=== PATIENT | female | born 1975 | race Caucasian/White ===

== ENCOUNTER → 2019-01-05 | Outpatient (CLI) | payer MEDICAID ==
--- NOTE | 2019-01-06 10:56 | CRLMY ---
INDICATION: Bilateral Screening Mammogram, Asymptomatic Female age 43 been obtained using full-field digital technique. These mammographic images were interpreted with the benefit of computer-aided detection. COMPARISON FILM: 12/30/17, 12/13/14. FINDINGS: There are scattered fibroglandular densities. There are no masses or calcifications that are suspicious for malignancy. IMPRESSION: There is no radiographic evidence for malignancy. ASSESSMENT: BI-RADS Category 1: Negative RECOMMENDATION: Routine screening mammogram in 1 year. A lay language report of this examination will be provided to the patient. Breast Tomosynthesis was used in this interpretation. [email or web address] Dictated by: Luis [email or web address].MD @ 01/06/2019 10:55:55 (Electronically Signed)
== END ==
LOC: JP.MAM 12:06
PROVIDERS: ATTEND Advanced Practice Midwife
DX: Z12.31 Encounter for screening mammogram for malignant neoplasm of breast (principal)
CPT/HCPCS: 77063; 77067

== ENCOUNTER 2020-02-20 08:22 | Observation (INO) | payer MEDICAID ==
[2020-02-20] MEDS ORDERED: Sodium Chloride 0.9% 1,000 ML IV ONE (08:55)
[2020-02-20] MEDS ORDERED: Ondansetron 4 MG/2 ML SDV IVPUSH ONE (08:56)
[2020-02-20] MEDS ORDERED: HYDROmorphone 0.5 MG/0.5 ML Syringe IVPUSH ONE (08:56)
--- NOTE | 2020-02-20 09:02 | EDM.PDOC ---
ED HPI GENERAL MEDICAL PROBLEM - General Chief Complaint: Genitourinary Problem Stated Complaint: UTI, SOB, FEVER, CHILLS Time Seen by Provider: 02/20/20 08:45 Source of Information: Reports: Patient History Limitations: Reports: No Limitations - History of Present Illness INITIAL COMMENTS - FREE TEXT/NARRATIVE: Patient utilized [facility] several days ago and was diagnosed as having urinary tract infection. Macrobid was prescribed. 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 Overnight she was unable to sleep and developed total body aches shaking chills and sweats. Complaining of abdominal pain and low back pain. Onset: Gradual Duration: Getting Worse Location: Reports: Abdomen Quality: Reports: Sharp Severity: Severe Associated Symptoms: Reports: Fever/Chills, Nausea/Vomiting Treatments ASSOCIATE FINANCIAL REPRESENTATIVE: Reports: Acetaminophen - Related Data Allergies Allergy/AdvReac Type Severity Reaction Status Date / Time No Known Allergies Allergy Verified 12/30/13 10:09 Home Meds: Home Meds FLUoxetine [PROzac] 20 mg PO DAILY 12/30/13 [History] Acetaminophen [Tylenol] 650 mg PO Q6H PRN 01/31/20 [History] Cyclobenzaprine HCl 5 mg PO TID PRN 01/31/20 [History] Ibuprofen 400 mg PO Q6H PRN 01/31/20 [History] Multivitamin with Minerals [Multiple Vitamin] 1 tab PO DAILY 01/31/20 [History] Naproxen Sodium [Aleve] 220 mg PO DAILY 01/31/20 [History] Triamcinolone Acetonide [Kenalog 0.1% Crm] 1 applic TOP TID PRN 01/31/20 [ History] Nitrofurantoin Monohyd/M-Cryst [Macrobid 100 mg Capsule] 100 mg PO BID 02/20/20 [History] Salicylic Acid [Duofilm] 1 appful TOP ASDIRECTED 02/20/20 [History] Past Medical History - Past Health History Medical/Surgical History: Denies Medical/Surgical History Genitourinary History: Reports: UTI, Recurrent Musculoskeletal History: Reports: Other (See Below) Other Musculoskeletal History: left shoulder pain - Past Surgical History Female Surgical History: Reports: Tubal Ligation Musculoskeletal Surgical History: Reports: None Social & Family History - Tobacco Use Smoking Status *Q: Unknown Ever Smoked - Caffeine Use Caffeine Use: Reports: Coffee - Recreational Drug Use Recreational Drug Use: No ED ROS GENERAL - Review of Systems Review Of Systems: See Below Constitutional: Reports: Fever, Chills, Malaise HEENT: Reports: No Symptoms Respiratory: Denies: Shortness of Breath, Wheezing, Cough Cardiovascular: Denies: Chest Pain Endocrine: Reports: Fatigue GI/Abdominal: Reports: Abdominal Pain, Vomiting : Reports: Dysuria, Flank Pain Musculoskeletal: Reports: Other (Total Body aches) Psychiatric: Reports: Anxiety, Mood Lability, Other (Patient is insistent that she not go back on medication prescribed for her via telemedicine for her UTI ( Macrobid)) ED EXAM, RENAL/ - Physical Exam Exam: See Below Exam Limited By: No Limitations General Appearance: Alert, Moderate Distress Ears: Normal External Exam Nose: Other (Mucous membranes) Throat/Mouth: Normal Teeth, Normal Gums Head: Normocephalic Neck: Normal Inspection, Supple Respiratory/Chest: No Respiratory Distress, Lungs Clear, Normal Breath Sounds, No Accessory Muscle Use Cardiovascular: No Edema, No Murmur, Tachycardia GI/Abdominal: No Organomegaly, Other (Diffuse tenderness but no guarding or rebound) Back Exam: Normal Inspection, CVA Tenderness (R) Extremities: Normal Inspection, Normal Range of Motion Neurological: Alert, Normal Cognition, No Motor/Sensory Deficits Psychiatric: Anxious, Depressed Mood Skin Exam: Warm, Dry Course - Vital Signs Text/Narrative:: Evaluation is done to rule out sepsis. I did initially order 1 L IV fluid, Dilaudid, and Zofran to help her symptomatically. Patient has elevated white blood cell count, elevated lactic acid, recurrent vomiting, Fevers, chills and sweats. Urinalysis still shows presence of white blood cells after the patient took 2 doses of Macrobid. We will be treating her as a septic patient with IV fluid bolus, blood cultures, and a dose of Rocephin here. Last Recorded V/S: Last Vital Signs Temp 37.6 C 02/20/20 08:39 Pulse 101 H 02/20/20 08:39 Resp 20 02/20/20 08:39 BP 131/78 02/20/20 08:39 Pulse Ox 96 02/20/20 08:39 - Orders/Labs/Meds Orders: Active Orders 24 hr Category Date Time Status Abdomen Pelvis w Cont [CT] Stat Exams 02/20/20 09:41 Ordered CULTURE BLOOD [BC] Urgent Lab 02/20/20 09:35 Ordered CULTURE BLOOD [BC] Urgent Lab 02/20/20 09:35 Ordered Urine [HCG QUALITATIVE,URINE] [URCHEM] Stat Lab 02/20/20 09:45 Ordered Iopamidol [Isovue-300 (61%)] Med 02/20/20 10:00 Active 100 ml IV . DIRECTED NS + KCl 20mEq/L [Normal Saline with 20 mEq KCl] 1,000 Med 02/20/20 10:00 Active ml IV ASDIRECTED Sodium Chloride 0.9% [Normal Saline] 100 ml Med 02/20/20 10:00 Active IV ASDIRECTED cefTRIAXone [Rocephin] 1 gm Med 02/20/20 09:45 Active Sodium Chloride 0.9% [Normal Saline] 50 ml IV ONETIME Blood Culture x2 Reflex Set [OM.PC] Urgent Oth 02/20/20 09:34 Ordered Medication Orders Ceftriaxone Sodium 1 gm/ (Sodium Chloride) 50 mls @ 100 mls/hr IV ONETIME ONE Stop: 02/20/20 10:14 Last Admin: 02/20/20 09:55 Dose: 100 mls/hr Sodium Chloride (Normal Saline) 100 mls @ 3 mls/sec IV ASDIRECTED GERI Potassium Chloride/Sodium Chloride (Normal Saline With 20 Meq Kcl) 1,000 mls @ 150 mls/hr IV ASDIRECTED GERI Iopamidol (Isovue-300 (61%)) 100 ml IV . DIRECTED [facility] Labs: Laboratory Tests 02/20/20 02/20/20 02/20/20 Range/Units 08:54 09:05 09:05 WBC 13.0 H (4.5-11.0) K/uL RBC 4.02 (3.30-5.50) M/uL Hgb 12.2 (12.0-15.0) g/dL Hct 36.7 (36.0-48.0) % MCV 91 (80-98) fL MCH 30 (27-31) pg MCHC 33 (32-36) % Plt Count 210 (150-400) K/uL Sodium 134 L (140-148) mmol/L Potassium 3.5 L (3.6-5.2) mmol/L Chloride 98 L (100-108) mmol/L Carbon Dioxide 23 (21-32) mmol/L Anion Gap 16.5 H (5.0-14.0) mmol/L BUN 7 (7-18) mg/dL Creatinine 0.9 (0.6-1.0) mg/dL Est Cr Clr Drug Dosing 66.67 mL/min Estimated GFR (MDRD) > 60 (>60) Glucose 106 (74-106) mg/dL Lactic Acid (0.4-2.0) mmol/L Calcium 8.6 (8.5-10.1) mg/dL Total Bilirubin 1.9 H (0.2-1.0) mg/dL AST 21 (15-37) U/L ALT 28 (12-78) U/L Alkaline Phosphatase 68 (46-116) U/L Total Protein 6.7 (6.4-8.2) g/dL Albumin 3.7 (3.4-5.0) g/dL Globulin 3.0 (2.3-3.5) g/dL Albumin/Globulin Ratio 1.2 (1.2-2.2) Lipase (73-393) U/L Procalcitonin ng/mL Urine Color Yellow (YELLOW) Urine Appearance Slightly cloudy A (CLEAR) Urine pH 7.0 (5.0-8.0) Ur Specific [place] 1.025 (1.008-1.030) Urine Protein Negative (NEGATIVE) mg/dL Urine Glucose (UA) Negative (NEGATIVE) mg/dL Urine Ketones Negative (NEGATIVE) mg/dL Urine Occult Blood Negative (NEGATIVE) Urine Nitrite Negative (NEGATIVE) Urine Bilirubin Negative (NEGATIVE) Urine Urobilinogen 0.2 (0.2-1.0) EU/dL Ur Leukocyte Esterase Trace H (NEGATIVE) Urine RBC 0-5 (0-5) Urine WBC 5-10 H (0-5) Ur Epithelial Cells Not seen Amorphous Sediment Not seen Urine Bacteria Few Urine Mucus Not seen 02/20/20 02/20/20 02/20/20 Range/Units 09:05 09:05 09:05 WBC (4.5-11.0) K/uL RBC (3.30-5.50) M/uL Hgb (12.0-15.0) g/dL Hct (36.0-48.0) % MCV (80-98) fL MCH (27-31) pg MCHC (32-36) % Plt Count (150-400) K/uL Sodium (140-148) mmol/L Potassium (3.6-5.2) mmol/L Chloride (100-108) mmol/L Carbon Dioxide (21-32) mmol/L Anion Gap (5.0-14.0) mmol/L BUN (7-18) mg/dL Creatinine (0.6-1.0) mg/dL Est Cr Clr Drug Dosing mL/min Estimated GFR (MDRD) (>60) Glucose (74-106) mg/dL Lactic Acid 3.3 H (0.4-2.0) mmol/L Calcium (8.5-10.1) mg/dL Total Bilirubin (0.2-1.0) mg/dL AST (15-37) U/L ALT (12-78) U/L Alkaline Phosphatase (46-116) U/L Total Protein (6.4-8.2) g/dL Albumin (3.4-5.0) g/dL Globulin (2.3-3.5) g/dL Albumin/Globulin Ratio (1.2-2.2) Lipase 87 (73-393) U/L Procalcitonin < 0.05 ng/mL Urine Color (YELLOW) Urine Appearance (CLEAR) Urine pH (5.0-8.0) Ur Specific [place] (1.008-1.030) Urine Protein (NEGATIVE) mg/dL Urine Glucose (UA) (NEGATIVE) mg/dL Urine Ketones (NEGATIVE) mg/dL Urine Occult Blood (NEGATIVE) Urine Nitrite (NEGATIVE) Urine Bilirubin (NEGATIVE) Urine Urobilinogen (0.2-1.0) EU/dL Ur Leukocyte Esterase (NEGATIVE) Urine RBC (0-5) Urine WBC (0-5) Ur Epithelial Cells Amorphous Sediment Urine Bacteria Urine Mucus Meds: Medications Generic Name Dose Route Start Last Admin Trade Name Freq PRN Reason Stop Dose Admin Ceftriaxone Sodium 1 gm/ 50 mls @ 100 mls/hr 02/20/20 09:45 02/20/20 09:55 Sodium Chloride IV 02/20/20 10:14 100 mls/hr ONETIME ONE Administration Sodium Chloride 100 mls @ 3 mls/sec 02/20/20 10:00 Normal Saline IV ASDIRECTED GERI Potassium Chloride/Sodium Chloride 1,000 mls @ 150 mls/hr 02/20/20 10:00 Normal Saline With 20 Meq Kcl IV ASDIRECTED GERI Iopamidol 100 ml 02/20/20 10:00 Isovue-300 (61%) IV . DIRECTED GERI Discontinued Medications Generic Name Dose Route Start Last Admin Trade Name Freq PRN Reason Stop Dose Admin Hydromorphone HCl 0.5 mg 02/20/20 08:56 02/20/20 09:06 Dilaudid IVPUSH 02/20/20 08:57 0.5 mg ONETIME ONE Administration Sodium Chloride 1,000 mls @ 1,000 mls/hr 02/20/20 08:55 02/20/20 09:05 Normal Saline IV 02/20/20 09:54 1,000 mls/hr .BOLUS ONE Administration Ondansetron HCl 4 mg 02/20/20 08:56 02/20/20 09:07 Zofran IVPUSH 02/20/20 08:57 4 mg ONETIME ONE Administration Sodium Chloride 10 ml 02/20/20 09:53 Saline Flush FLUSH 02/20/20 09:54 ONETIME ONE Departure - Discharge Information Referrals: Dayana Richard CNM [Primary Care Provider] - Forms: ED Department Discharge Sepsis Event Note - Evaluation Sepsis Screening Result: Possible Sepsis Risk - Focused Exam Vital Signs: Vital Signs Temp Pulse Resp BP Pulse Ox 02/20/20 08:39 37.6 C 101 H 20 131/78 96 02/20/20 08:34 37.6 C 101 H 20 131/78 96 Date Exam was Performed: 02/20/20 Time Exam was Performed: 10:00 - My Orders Last 24 Hours: My Active Orders 02/20/20 09:34 Blood Culture x2 Reflex Set [OM.PC] Urgent 02/20/20 09:35 CULTURE BLOOD [BC] Urgent CULTURE BLOOD [BC] Urgent 02/20/20 09:41 Abdomen Pelvis w Cont [CT] Stat 02/20/20 09:45 Urine [HCG QUALITATIVE,URINE] [URCHEM] Stat cefTRIAXone [Rocephin] 1 gm Sodium Chloride 0.9% [Normal Saline] 50 ml IV ONETIME 02/20/20 10:00 Iopamidol [Isovue-300 (61%)] 100 ml IV . DIRECTED NS + KCl 20mEq/L [Normal Saline with 20 mEq KCl] 1,000 ml IV ASDIRECTED Sodium Chloride 0.9% [Normal Saline] 100 ml IV ASDIRECTED - Assessment/Plan Last 24 Hours: My Active Orders 02/20/20 09:34 Blood Culture x2 Reflex Set [OM.PC] Urgent 02/20/20 09:35 CULTURE BLOOD [BC] Urgent CULTURE BLOOD [BC] Urgent 02/20/20 09:41 Abdomen Pelvis w Cont [CT] Stat 02/20/20 09:45 Urine [HCG QUALITATIVE,URINE] [URCHEM] Stat cefTRIAXone [Rocephin] 1 gm Sodium Chloride 0.9% [Normal Saline] 50 ml IV ONETIME 02/20/20 10:00 Iopamidol [Isovue-300 (61%)] 100 ml IV . DIRECTED NS + KCl 20mEq/L [Normal Saline with 20 mEq KCl] 1,000 ml IV ASDIRECTED Sodium Chloride 0.9% [Normal Saline] 100 ml IV ASDIRECTED
[2020-02-20] MEDS ORDERED: cefTRIAXone 1 GM in Sodium Chloride 0.9% 50 ML IV ONE ×2 (09:37→09:45)
[2020-02-20] MEDS ORDERED: Sodium Chloride 0.9% 10 ML Syringe FLUSH ONE (09:53)
[2020-02-20] MEDS ORDERED: NS + KCl 20mEq/L 1,000 ML IV SCH (10:00)
[2020-02-20] MEDS ORDERED: Iopamidol 612 MG/ML 100 ML Bottle IV SCH (10:00)
[2020-02-20] MEDS ORDERED: Sodium Chloride 0.9% 100 ML IV SCH (10:00)
--- NOTE | 2020-02-20 10:45 | CRLCT ---
INDICATION: Abdominal pain and fever COMPARISON: None TECHNIQUE: CT examination of the abdomen and pelvis was performed following the uneventful intravenous administration of 100 cc of Isovue-300. Thin section axial images were obtained from the lung bases through the pubic symphysis. Oral contrast was not administered. Please note that all CT scans at this facility use dose modulation, iterative reconstruction, and/or weight-based dosing when appropriate to reduce radiation dose to as low as reasonably achievable. FINDINGS: LUNG BASES: The lung bases as visualized appear normal.The heart size is normal at the lung bases. LIVER/BILIARY SYSTEM:The liver is normal in size and configuration. There is no focal mass and there is no intra- or extra hepatic biliary ductal dilatation.The gall bladder appears normal. ADRENALS: Normal KIDNEYS, URETERS and BLADDER:The kidneys appear normal. No visible mass, calculus or hydronephrosis. The ureters and bladder as visualized appear normal. SPLEEN:Normal appearance. PANCREAS: Appears normal. RETROPERITONEUM and MESENTERY: There is no mass, adenopathy or aortic aneurysm. GASTROINTESTINAL SYSTEM: There is no evidence of diverticulitis, colitis, mechanical obstruction, or appendicitis. The small bowel as visualized appears normal.Fecal retention. PELVIS: No mass, adenopathy or free fluid. 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 OTHER: No free fluid or free air. IMPRESSION: No physical etiology for pain and fever. There is fecal retention without mechanical obstruction. No evidence of pyelonephritis, abscess, appendicitis, diverticulitis, colitis or cholecystitis Please note that all CT scans at this facility use dose modulation, iterative reconstruction, and/or weight-based dosing when appropriate to reduce radiation dose to as low as reasonably achievable. Dictated by Elvis Mancuso MD @ Feb 20 2020 10:39AM Signed by Dr. Elvis Mancuso @ Feb 20 2020 10:45AM
[2020-02-20] MEDS ORDERED: HYDROmorphone 1 MG/ML Syringe IVPUSH ONE (11:03)
--- NOTE | 2020-02-20 11:56 | PCM.HP.2 ---
H&P History of Present Illness - General Date of Service: 02/20/20 Admit Problem/Dx: Admission Diagnosis/Problem Admission Diagnosis/Problem Gastroenteritis Source of Information: Patient, Provider History Limitations: Reports: No Limitations - History of Present Illness Initial Comments - Free Text/Narative: CC: My head hurts, I hurt all over HPI: Denise presents to the emergency room today with headache, nausea, vomiting and myalgias. She also reports shaking chills. She had diarrhea 3 nights ago but felt a little better 2 days ago. Yesterday she had some nausea and mild myalgias. This morning she developed vomiting and dry heaves. She complains of a moderate generalized headache as well as diffuse myalgias. She has not taken anything to help with the headache or myalgias at home. Symptoms seem to be getting worse over the past 24 hours. No obvious trigger to make things worse. She did feel little short of breath when her fever was present this morning but in general has not felt short of breath and she has not had a cough or sore throat. No diarrhea in the past 24 hours. She had dysuria 2 nights ago and was diagnosed via telehealth with a urinary tract infection. She took 2 doses of the oral antibiotic yesterday and has no more dysuria or urinary frequency. She has not traveled. She has been on unemployment for the last month because of the [employer] shutdown. She did attend a social gathering/ bonfire 3 nights ago but nobody was sick that she is aware of. Work-up in the emergency room revealed mild leukocytosis and a mild elevation of her lactic acid. She was mildly tachycardic. No strong evidence to support bacterial infection and her procalcitonin was undetectable. Viral infection such as gastroenteritis is suspected. Given the severity of symptoms she will be admitted for hydration, symptom management and further observation. Head Pain Score (Numeric/FACES): 10 Generalized Pain Score (Numeric/FACES): 8 - Related Data Allergies/Adverse Reactions: Allergies Allergy/AdvReac Type Severity Reaction Status Date / Time No Known Allergies Allergy Verified 12/30/13 10:09 Home Medications: Home Meds FLUoxetine [PROzac] 20 mg PO DAILY 12/30/13 [History] Acetaminophen [Tylenol] 650 mg PO Q6H PRN 01/31/20 [History] Cyclobenzaprine HCl 5 mg PO TID PRN 01/31/20 [History] Ibuprofen 400 mg PO Q6H PRN 01/31/20 [History] Multivitamin with Minerals [Multiple Vitamin] 1 tab PO DAILY 01/31/20 [History] Naproxen Sodium [Aleve] 220 mg PO DAILY 01/31/20 [History] Triamcinolone Acetonide [Kenalog 0.1% Crm] 1 applic TOP TID PRN 01/31/20 [ History] Nitrofurantoin Monohyd/M-Cryst [Macrobid 100 mg Capsule] 100 mg PO BID 02/20/20 [History] Salicylic Acid [Duofilm] 1 appful TOP ASDIRECTED 02/20/20 [History] Past Medical History - Past Health History Medical/Surgical History: Denies Medical/Surgical History Genitourinary History: Reports: UTI, Recurrent Musculoskeletal History: Reports: Other (See Below) Other Musculoskeletal History: left shoulder pain - Past Surgical History Female Surgical History: Reports: Tubal Ligation Musculoskeletal Surgical History: Reports: None Social & Family History - Family History GI: Denies: Pancreatitis - Tobacco Use Smoking Status *Q: Unknown Ever Smoked - Caffeine Use Caffeine Use: Reports: Coffee - Recreational Drug Use Recreational Drug Use: No H&P Review of Systems - Review of Systems: Review Of Systems: See Below Free Text/Narrative: A complete 12 point review of systems was obtained. Pertinent positives and negatives are noted in the history of present illness. All other systems were reviewed and were negative except as noted. Exam - Exam Exam: See Below - Vital Signs Vital Signs: Last Vital Signs Temp 38.1 C 02/20/20 10:24 Pulse 106 H 02/20/20 10:24 Resp 16 02/20/20 10:24 BP 127/75 02/20/20 10:24 Pulse Ox 99 02/20/20 10:24 Weight: 58.967 kg - Exam Quality Assessment: No: Supplemental Oxygen General: Alert, Oriented, Cooperative. No: Mild Distress HEENT: Conjunctiva Clear. No: Mucosa Moist & [place] (dry), Scleral Icterus Neck: Supple. No: Lymphadenopathy Lungs: Clear to Auscultation, Normal Respiratory Effort Cardiovascular: Regular Rhythm, Systolic Murmur, Other (hyperdynamic ) GI/Abdominal Exam: Normal Bowel Sounds, Soft, No Distention, Tender (mild epigastric ) Extremities: No Pedal Edema. No: Increased Warmth Peripheral Pulses: 2+: Dorsalis Pedis (L), Dorsalis Pedis (R) Skin: Warm, Dry Neuro Extensive - Mental Status: Alert, Oriented x3, Nl Response to Commands Neuro Extensive - Motor, Sensory, Reflexes: No: Dysarthria, Abnormal Motor, Tremor Psychiatric: Alert, Normal Affect - Patient Data Lab Results Last 24 hrs: Laboratory Results - last 24 hr 02/20/20 02/20/20 02/20/20 Range/Units 08:54 09:05 09:05 WBC 13.0 H (4.5-11.0) K/uL RBC 4.02 (3.30-5.50) M/uL Hgb 12.2 (12.0-15.0) g/dL Hct 36.7 (36.0-48.0) % MCV 91 (80-98) fL MCH 30 (27-31) pg MCHC 33 (32-36) % Plt Count 210 (150-400) K/uL Sodium 134 L (140-148) mmol/L Potassium 3.5 L (3.6-5.2) mmol/L Chloride 98 L (100-108) mmol/L Carbon Dioxide 23 (21-32) mmol/L Anion Gap 16.5 H (5.0-14.0) mmol/L BUN 7 (7-18) mg/dL Creatinine 0.9 (0.6-1.0) mg/dL Est Cr Clr Drug Dosing 66.67 mL/min Estimated GFR (MDRD) > 60 (>60) Glucose 106 (74-106) mg/dL Lactic Acid (0.4-2.0) mmol/L Calcium 8.6 (8.5-10.1) mg/dL Total Bilirubin 1.9 H (0.2-1.0) mg/dL AST 21 (15-37) U/L ALT 28 (12-78) U/L Alkaline Phosphatase 68 (46-116) U/L Total Protein 6.7 (6.4-8.2) g/dL Albumin 3.7 (3.4-5.0) g/dL Globulin 3.0 (2.3-3.5) g/dL Albumin/Globulin Ratio 1.2 (1.2-2.2) Lipase (73-393) U/L Procalcitonin ng/mL Urine Color Yellow (YELLOW) Urine Appearance Slightly cloudy A (CLEAR) Urine pH 7.0 (5.0-8.0) Ur Specific [place] 1.025 (1.008-1.030) Urine Protein Negative (NEGATIVE) mg/dL Urine Glucose (UA) Negative (NEGATIVE) mg/dL Urine Ketones Negative (NEGATIVE) mg/dL Urine Occult Blood Negative (NEGATIVE) Urine Nitrite Negative (NEGATIVE) Urine Bilirubin Negative (NEGATIVE) Urine Urobilinogen 0.2 (0.2-1.0) EU/dL Ur Leukocyte Esterase Trace H (NEGATIVE) Urine RBC 0-5 (0-5) Urine WBC 5-10 H (0-5) Ur Epithelial Cells Not seen Amorphous Sediment Not seen Urine Bacteria Few Urine Mucus Not seen Urine HCG, Qual 02/20/20 02/20/20 02/20/20 Range/Units 09:05 09:05 09:05 WBC (4.5-11.0) K/uL RBC (3.30-5.50) M/uL Hgb (12.0-15.0) g/dL Hct (36.0-48.0) % MCV (80-98) fL MCH (27-31) pg MCHC (32-36) % Plt Count (150-400) K/uL Sodium (140-148) mmol/L Potassium (3.6-5.2) mmol/L Chloride (100-108) mmol/L Carbon Dioxide (21-32) mmol/L Anion Gap (5.0-14.0) mmol/L BUN (7-18) mg/dL Creatinine (0.6-1.0) mg/dL Est Cr Clr Drug Dosing mL/min Estimated GFR (MDRD) (>60) Glucose (74-106) mg/dL Lactic Acid 3.3 H (0.4-2.0) mmol/L Calcium (8.5-10.1) mg/dL Total Bilirubin (0.2-1.0) mg/dL AST (15-37) U/L ALT (12-78) U/L Alkaline Phosphatase (46-116) U/L Total Protein (6.4-8.2) g/dL Albumin (3.4-5.0) g/dL Globulin (2.3-3.5) g/dL Albumin/Globulin Ratio (1.2-2.2) Lipase 87 (73-393) U/L Procalcitonin < 0.05 ng/mL Urine Color (YELLOW) Urine Appearance (CLEAR) Urine pH (5.0-8.0) Ur Specific [place] (1.008-1.030) Urine Protein (NEGATIVE) mg/dL Urine Glucose (UA) (NEGATIVE) mg/dL Urine Ketones (NEGATIVE) mg/dL Urine Occult Blood (NEGATIVE) Urine Nitrite (NEGATIVE) Urine Bilirubin (NEGATIVE) Urine Urobilinogen (0.2-1.0) EU/dL Ur Leukocyte Esterase (NEGATIVE) Urine RBC (0-5) Urine WBC (0-5) Ur Epithelial Cells Amorphous Sediment Urine Bacteria Urine Mucus Urine HCG, Qual 02/20/20 Range/Units 09:45 WBC (4.5-11.0) K/uL RBC (3.30-5.50) M/uL Hgb (12.0-15.0) g/dL Hct (36.0-48.0) % MCV (80-98) fL MCH (27-31) pg MCHC (32-36) % Plt Count (150-400) K/uL Sodium (140-148) mmol/L Potassium (3.6-5.2) mmol/L Chloride (100-108) mmol/L Carbon Dioxide (21-32) mmol/L Anion Gap (5.0-14.0) mmol/L BUN (7-18) mg/dL Creatinine (0.6-1.0) mg/dL Est Cr Clr Drug Dosing mL/min Estimated GFR (MDRD) (>60) Glucose (74-106) mg/dL Lactic Acid (0.4-2.0) mmol/L Calcium (8.5-10.1) mg/dL Total Bilirubin (0.2-1.0) mg/dL AST (15-37) U/L ALT (12-78) U/L Alkaline Phosphatase (46-116) U/L Total Protein (6.4-8.2) g/dL Albumin (3.4-5.0) g/dL Globulin (2.3-3.5) g/dL Albumin/Globulin Ratio (1.2-2.2) Lipase (73-393) U/L Procalcitonin ng/mL Urine Color (YELLOW) Urine Appearance (CLEAR) Urine pH (5.0-8.0) Ur Specific [place] (1.008-1.030) Urine Protein (NEGATIVE) mg/dL Urine Glucose (UA) (NEGATIVE) mg/dL Urine Ketones (NEGATIVE) mg/dL Urine Occult Blood (NEGATIVE) Urine Nitrite (NEGATIVE) Urine Bilirubin (NEGATIVE) Urine Urobilinogen (0.2-1.0) EU/dL Ur Leukocyte Esterase (NEGATIVE) Urine RBC (0-5) Urine WBC (0-5) Ur Epithelial Cells Amorphous Sediment Urine Bacteria Urine Mucus Urine HCG, Qual Negative Result Diagrams: 02/20/20 09:05 02/20/20 09:05 Imaging Impressions Last 24 hrs: CT abd/pelvis - images personally reviewed - no evidence for bowel obstruction, cholecystitis, appendicitis or acute pathology. Sepsis Event Note - Evaluation Sepsis Screening Result: Possible Sepsis Risk - Focused Exam Vital Signs: Vital Signs Temp Pulse Resp BP Pulse Ox 02/20/20 10:24 38.1 C 106 H 16 127/75 99 02/20/20 08:39 37.6 C 101 H 20 131/78 96 02/20/20 08:34 37.6 C 101 H 20 131/78 96 Date Exam was Performed: 02/20/20 Time Exam was Performed: 15:42 *Q Meaningful Use (ADM) - VTE Risk Assess *Q Each Risk Factor Represents 1 Point: Age 41 - 59 years Total Score 1 Point Risk Factors: 1 Each Risk Factor Represents 2 Points: None Total Score 2 Point Risk Factors: 0 Each Risk Factor Represents 3 Points: None Total Score 3 Point Risk Factors: 0 Each Risk Factor Represents 5 Points: None Total Score 5 Point Risk Factors: 0 Venous Thromboembolism Risk Factor Score *Q: 1 - Problem List (1) Gastroenteritis SNOMED Code(s): 69040565 ICD Code: K52.9 - NONINFECTIVE GASTROENTERITIS AND COLITIS, UNSPECIFIED Status: Acute Current Visit: Yes (2) Hypokalemia SNOMED Code(s): 25343005 ICD Code: E87.6 - HYPOKALEMIA Status: Acute Current Visit: Yes Problem List Initiated/Reviewed/Updated: Yes Orders Last 24hrs: Active Orders 24 hr Category Date Time Status Patient Status Manage Transfer [TRANSFER] Routine ADT 02/20/20 11:48 Ordered CULTURE BLOOD [BC] Urgent Lab 02/20/20 09:35 Ordered CULTURE BLOOD [BC] Urgent Lab 02/20/20 09:35 Ordered CULTURE URINE [RM] Routine Lab 02/20/20 11:31 Received Iopamidol [Isovue-300 (61%)] Med 02/20/20 10:00 Active 100 ml IV . DIRECTED NS + KCl 20mEq/L [Normal Saline with 20 mEq KCl] 1,000 Med 02/20/20 10:00 Active ml IV ASDIRECTED Sodium Chloride 0.9% [Normal Saline] 100 ml Med 02/20/20 10:00 Active IV ASDIRECTED Blood Culture x2 Reflex Set [OM.PC] Urgent Oth 02/20/20 09:34 Ordered Resuscitation Status Routine Resus Stat 02/20/20 11:49 Ordered Medication Orders Sodium Chloride (Normal Saline) 100 mls @ 3 mls/sec IV ASDIRECTED [facility] Last Admin: 02/20/20 10:08 Dose: 3 mls/sec Potassium Chloride/Sodium Chloride (Normal Saline With 20 Meq Kcl) 1,000 mls @ 150 mls/hr IV ASDIRECTED [facility] Iopamidol (Isovue-300 (61%)) 100 ml IV . DIRECTED [facility] Last Admin: 02/20/20 10:11 Dose: 100 ml Assessment/Plan Comment:: ASSESSMENT AND PLAN - Viral gastroenteritis, suspected-mild diarrhea with nausea, vomiting, headache and myalgias. No obvious sick contacts but she has been out and about in the community some. Laboratory studies and symptoms do not fit with COVID19. I would anticipate with hydration and some symptomatic management she should be feeling better by tomorrow. CT scan of the abdomen and pelvis was unremarkable. Procalcitonin level was undetectable. -IV fluids -Symptomatic management of pain and nausea -Advance diet as tolerated Hypokalemia-mild and will be supplemented. Maintenance issues - - DVT prophylaxis -mechanical - GI prophylaxis -not indicated - Nutrition -clear liquids, advance as tolerated - Hamm catheter -not indicated CODE STATUS -full code Admission justification -patient will be referred observation status for hydration and symptom management. Disposition -I would anticipate discharge home tomorrow Primary care physician -Dayana Watson M.D. - Mortality Measure Prognosis:: Good
[2020-02-20] MEDS ORDERED: LORazepam 2 MG/ML SDV IVPUSH PRN (12:50)
[2020-02-20] MEDS ORDERED: Cyclobenzaprine 10 MG Tab PO PRN (12:50)
[2020-02-20] MEDS ORDERED: Ondansetron 4 MG/2 ML SDV IV PRN (12:50)
[2020-02-20] MEDS ORDERED: Magnesium Hydroxide 400 MG/5 ML Susp 30 ML Cup PO PRN (12:50)
[2020-02-20] MEDS ORDERED: HYDROmorphone 0.5 MG/0.5 ML Syringe IVPUSH PRN (12:50)
[2020-02-20] MEDS: Ondansetron 4 MG Tab.DIS PO PRN (13:45)
[2020-02-20] MEDS: Ketorolac 30 MG/ML SDV IVPUSH PRN ×2 (13:45→19:47)
[2020-02-20] MEDS: Potassium Chloride 20 MEQ, Lidocaine 1% 2 ML in Sodium Chloride 0.9% 100 ML IV SCH ×2 (13:47→15:52)
[2020-02-20] MEDS: Acetaminophen 325 MG Tab PO PRN ×2 (15:57→21:24)
[2020-02-20] MEDS: NS + KCl 20mEq/L 1,000 ML IV SCH (21:23)
[2020-02-20] MEDS: oxyCODONE 5 MG Tab PO PRN (21:24)
[2020-02-21] MEDS: oxyCODONE 5 MG Tab PO PRN ×2 (03:00→08:16)
[2020-02-21] MEDS: Acetaminophen 325 MG Tab PO PRN ×2 (03:01→08:15)
[2020-02-21] MEDS: NS + KCl 20mEq/L 1,000 ML IV SCH (05:30)
[2020-02-21] MEDS: Ondansetron 4 MG Tab.DIS PO PRN (08:33)
[2020-02-21] MEDS ORDERED: FLUoxetine 20 MG Cap PO SCH (09:00)
--- NOTE | 2020-02-21 10:34 | PCM.DCSUM1 ---
Discharge Summary - Hospital Course Brief History: Healthy 44-year-old female who presented with abdominal pain, nausea with vomiting, myalgias and headache. She is admitted for management of presumed gastroenteritis with dehydration and hypokalemia. Diagnosis: Stroke: No - Discharge Data Discharge Date: 02/21/20 Discharge Disposition: Home, Self-Care 01 Condition: Good - Referral to Home Health Primary Care Physician: Dayana Richard CNM - Discharge Diagnosis/Problem(s) (1) Gastroenteritis SNOMED Code(s): 75520121 ICD Code: K52.9 - NONINFECTIVE GASTROENTERITIS AND COLITIS, UNSPECIFIED Status: Acute (2) Hypokalemia SNOMED Code(s): 67604846 ICD Code: E87.6 - HYPOKALEMIA Status: Acute - Patient Summary/Data Hospital Course: Dinora presented to the emergency room with nausea with vomiting, headache, myalgias and concern for urinary tract infection. Work-up in the emergency room was fairly unremarkable other than mild leukocytosis and mildly elevated lactic acid level. CT scan of the abdomen and pelvis was unremarkable. Viral infection and most likely gastroenteritis was suspected. She was admitted to the hospital and started on IV fluids as well as symptomatic management. Her potassium was mildly low and was replaced. Overnight there were no acute issues. Her fever resolved overnight and has not recurred. Symptomatically she is feeling much better this morning. Her headache has nearly resolved. Muscle aches are better. Appetite is coming back. No nausea or vomiting. White blood cell count is now normal. She feels well enough to go home at this point. Her urine culture is not growing any bacteria and we will not continue antibiotic therapy. She does not have any urinary symptoms at this time. She will follow-up if her symptoms return. - Patient Instructions Diet: Regular Diet as Tolerated Activity: As Tolerated Showering/Bathing: May Shower Notify Provider of: Fever, Increased Pain, Nausea and/or Vomiting Other/Special Instructions: 1. You were in the hospital for management of suspected viral gastroenteritis. Your condition has been improving with IV fluids and symptomatic management. I encourage you to drink plenty of fluids to maintain hydration. You may use acetaminophen and/or ibuprofen for mild pain /headache. You should seek medical attention if you have a recurrence of high fever or if your symptoms worsen. 2. Continue your usual home medications as previously prescribed. - Discharge Plan *PRESCRIPTION DRUG MONITORING PROGRAM REVIEWED*: Not Applicable *COPY OF PRESCRIPTION DRUG MONITORING REPORT IN PATIENT LILLIAM: Not Applicable Home Medications: Home Meds FLUoxetine [PROzac] 20 mg PO DAILY 12/30/13 [History] Acetaminophen [Tylenol] 650 mg PO Q6H PRN 01/31/20 [History] Cyclobenzaprine HCl 5 mg PO TID PRN 01/31/20 [History] Ibuprofen 400 mg PO Q6H PRN 01/31/20 [History] Triamcinolone Acetonide [Kenalog 0.1% Crm] 1 applic TOP TID PRN 01/31/20 [ History] Nitrofurantoin Monohyd/M-Cryst [Macrobid 100 mg Capsule] 100 mg PO BID 02/20/20 [History] Salicylic Acid [Duofilm] 1 appful TOP ASDIRECTED 02/20/20 [History] Cranberry Conc/Ascorbic Acid [Cranberry Concentrate Softgel] 1 each PO DAILY [History] Oxygen Therapy Mode: Room Air Patient Handouts: Viral Gastroenteritis, Adult, [id number] Referrals: Dayana Richard CNM [Primary Care Provider] - (f/u as needed) - Discharge Summary/Plan Comment DC Time >30 min.: No - Patient Data Vitals - Most Recent: Last Vital Signs Temp 37.2 C 02/21/20 08:19 Pulse 100 02/21/20 08:19 Resp 18 02/21/20 08:19 BP 112/67 02/21/20 08:19 Pulse Ox 94 L 02/21/20 08:19 Weight - Most Recent: 58.967 kg I&O - Last 24 hours: Intake & Output 02/20/20 02/21/20 02/21/20 22:59 06:59 14:59 Intake Total 2154 1981 900 Output Total 2200 500 700 Balance -46 1481 200 Lab Results - Last 24 hrs: Laboratory Results - last 24 hr 02/20/20 02/21/20 02/21/20 Range/Units 14:14 05:30 05:30 WBC 10.0 (4.5-11.0) K/uL RBC 3.72 (3.30-5.50) M/uL Hgb 11.4 L (12.0-15.0) g/dL Hct 34.7 L (36.0-48.0) % MCV 93 (80-98) fL MCH 31 (27-31) pg MCHC 33 (32-36) % Plt Count 179 (150-400) K/uL Sodium 138 L (140-148) mmol/L Potassium 3.9 (3.6-5.2) mmol/L Chloride 106 (100-108) mmol/L Carbon Dioxide 24 (21-32) mmol/L Anion Gap 11.9 (5.0-14.0) mmol/L BUN 3 L D (7-18) mg/dL Creatinine 0.7 (0.6-1.0) mg/dL Est Cr Clr Drug Dosing 85.72 mL/min Estimated GFR (MDRD) > 60 (>60) Glucose 107 H (74-106) mg/dL Lactic Acid 1.7 (0.4-2.0) mmol/L Calcium 7.7 L (8.5-10.1) mg/dL MIRIAM Results - Last 24 hrs: Microbiology 02/20/20 11:31 Urine Culture - Preliminary Urine, Clean Catch NO GROWTH AFTER 1 DAY Med Orders - Current: Current Medications Acetaminophen (Tylenol) 650 mg PO Q4H PRN PRN Reason: Pain (Mild 1-3)/fever Last Admin: 02/21/20 08:15 Dose: 650 mg Cyclobenzaprine HCl (Flexeril) 5 mg PO TID PRN PRN Reason: Spasms Fluoxetine HCl (Prozac) 20 mg PO DAILY [facility] Last Admin: 02/21/20 08:33 Dose: 20 mg Hydromorphone HCl (Dilaudid) 0.5 mg IVPUSH Q2H PRN PRN Reason: Pain (severe 7-10) Potassium Chloride/Sodium Chloride (Normal Saline With 20 Meq Kcl) 1,000 mls @ 125 mls/hr IV ASDIRECTED [facility] Last Admin: 02/21/20 05:30 Dose: 125 mls/hr Ketorolac Tromethamine (Toradol) 30 mg IVPUSH Q6H PRN PRN Reason: Headache/Myalgias Stop: 02/25/20 11:52 Last Admin: 02/20/20 19:47 Dose: 30 mg Lorazepam (Ativan) 0.5 mg IVPUSH Q4H PRN PRN Reason: Nausea/Vomiting Magnesium Hydroxide (Milk Of Magnesia) 30 ml PO Q12H PRN PRN Reason: Constipation Ondansetron HCl (Zofran Odt) 4 mg PO Q6H PRN PRN Reason: Nausea able to take PO Last Admin: 02/21/20 08:33 Dose: 4 mg Ondansetron HCl (Zofran) 4 mg IV Q6H PRN PRN Reason: Nausea/Vomiting Oxycodone HCl (Oxycodone) 5 mg PO Q4H PRN PRN Reason: Pain (moderate 4-6) Last Admin: 02/21/20 08:16 Dose: 5 mg Senna/Docusate Sodium (Senna Plus) 1 tab PO BID PRN PRN Reason: Constipation Discontinued Medications Hydromorphone HCl (Dilaudid) 0.5 mg IVPUSH ONETIME ONE Stop: 02/20/20 08:57 Last Admin: 02/20/20 09:06 Dose: 0.5 mg Hydromorphone HCl (Dilaudid) 1 mg IVPUSH ONETIME ONE Stop: 02/20/20 11:04 Last Admin: 02/20/20 11:16 Dose: 1 mg Sodium Chloride (Normal Saline) 1,000 mls @ 1,000 mls/hr IV .BOLUS ONE Stop: 02/20/20 09:54 Last Admin: 02/20/20 09:05 Dose: 1,000 mls/hr Ceftriaxone Sodium 1 gm/ (Sodium Chloride) 50 mls @ 100 mls/hr IV ONETIME ONE Stop: 02/20/20 10:14 Last Admin: 02/20/20 09:55 Dose: 100 mls/hr Sodium Chloride (Normal Saline) 100 mls @ 3 mls/sec IV ASDIRECTED [facility] Last Admin: 02/20/20 10:08 Dose: 3 mls/sec Potassium Chloride/Sodium Chloride (Normal Saline With 20 Meq Kcl) 1,000 mls @ 150 mls/hr IV ASDIRECTED [facility] Last Admin: 02/20/20 12:31 Dose: 150 mls/hr Potassium Chloride 20 meq/Lidocaine HCl 2 ml/ Sodium Chloride 112 mls @ 56 mls/ hr IV Q2H GERI Stop: 02/20/20 17:59 Last Admin: 02/20/20 15:52 Dose: 56 mls/hr Iopamidol (Isovue-300 (61%)) 100 ml IV . DIRECTED [facility] Last Admin: 02/20/20 10:11 Dose: 100 ml Ondansetron HCl (Zofran) 4 mg IVPUSH ONETIME ONE Stop: 02/20/20 08:57 Last Admin: 02/20/20 09:07 Dose: 4 mg Sodium Chloride (Saline Flush) 10 ml FLUSH ONETIME ONE Stop: 02/20/20 09:54 Last Admin: 02/20/20 10:08 Dose: 10 ml - Exam Quality Assessment: Denies: Supplemental Oxygen General: Reports: Alert, Oriented, Cooperative, No Acute Distress Lungs: Reports: Normal Respiratory Effort Cardiovascular: Reports: Regular Rate, Regular Rhythm GI/Abdominal Exam: Soft, No Distention Extremities: No Pedal Edema Psy/Mental Status: Reports: Alert, Normal Affect
== END 2020-02-21 11:30 | disposition home or self-care (01) ==
LOC: JP.ED 08:22 → JP.MS 11:48
PROVIDERS: ADMIT Internal Medicine; ATTEND Internal Medicine
DX: K52.9 Noninfective gastroenteritis and colitis, unspecified (principal); E87.6 Hypokalemia; R74.0 Nonspecific elevation of levels of transaminase and lactic acid dehydrogenase [LDH]; Z79.899 Other long term (current) drug therapy
CPT/HCPCS: 36415; 74177; 80048; 80053; 81001; 81025; 83605; 83690; 84145; 85027; 87086; 96361; 96365; 96375; 96376; 99285; A9270; J0696; J1170; J1885; J2001; J2405; J3480; J7030; J7050; Q9967

== ENCOUNTER 2020-03-12 14:59 | Emergency (ER) | payer MEDICAID ==
[2020-03-12] MEDS ORDERED: Ondansetron 4 MG/2 ML SDV IVPUSH ONE (15:09)
[2020-03-12] MEDS: diphenhydrAMINE 50 MG/ML SDV IVPUSH ONE (15:23)
[2020-03-12] MEDS: HYDROmorphone 0.5 MG/0.5 ML Syringe IVPUSH ONE (15:23)
[2020-03-12] MEDS: methylPREDNISolone Sodium Succinate 125 MG/2 ML SDV IVPUSH ONE (15:23)
[2020-03-12] MEDS: Sodium Chloride 0.9% 1,000 ML IV SCH (15:36)
--- NOTE | 2020-03-12 15:43 | EDM.PDOC ---
ED HPI GENERAL MEDICAL PROBLEM - General Chief Complaint: Allergic Reaction Stated Complaint: ABD PAIN,UTI,VOMITING Time Seen by Provider: 03/12/20 15:15 Source of Information: Reports: Patient, Provider History Limitations: Reports: No Limitations - History of Present Illness INITIAL COMMENTS - FREE TEXT/NARRATIVE: 44-year-old female sent over from the clinic with acute nausea and vomiting, chest pain and shortness of breath after taking 2 doses of nitrofurantoin for suspected UTI. She had a very similar cascade of symptoms requiring 1 day of hospitalization a few weeks ago after taking nitrofurantoin. At that time it was felt to be coincidental and she was diagnosed with a gastroenteritis, but she felt she had some UTI symptoms again overnight so took a dose of nitrofurantoin at 2 AM and another one this morning and she feels awful. She has chest tightness, shortness of breath, abdominal cramps and pain, nausea and vomiting, chills and generalized malaise. She went into the clinic and received an injection of Zofran and then was sent to the emergency room. Onset: Gradual Duration: Hour(s): (Symptoms have worsened over the last 7 hours) Associated Symptoms: Reports: Chest Pain, Fever/Chills, Loss of Appetite, Malaise, Nausea/Vomiting, Shortness of Breath. Denies: Cough, Headaches, Rash - Related Data Allergies Allergy/AdvReac Type Severity Reaction Status Date / Time nitrofurantoin Allergy Intermediate Chest Verified 03/12/20 15:41 Presssure Home Meds: Home Meds FLUoxetine [PROzac] 20 mg PO DAILY 12/30/13 [History] Acetaminophen [Tylenol] 650 mg PO Q6H PRN 01/31/20 [History] Cyclobenzaprine HCl 5 mg PO TID PRN 01/31/20 [History] Ibuprofen 400 mg PO Q6H PRN 01/31/20 [History] Triamcinolone Acetonide [Kenalog 0.1% Crm] 1 applic TOP TID PRN 01/31/20 [ History] Salicylic Acid [Duofilm] 1 appful TOP ASDIRECTED 02/20/20 [History] Cranberry Conc/Ascorbic Acid [Cranberry Concentrate Softgel] 1 each PO DAILY [History] Past Medical History - Past Health History Medical/Surgical History: Denies Medical/Surgical History Genitourinary History: Reports: UTI, Recurrent Musculoskeletal History: Reports: Other (See Below) Other Musculoskeletal History: left shoulder pain - Infectious Disease History Infectious Disease History: Reports: Chicken Pox - Past Surgical History Female Surgical History: Reports: Tubal Ligation Musculoskeletal Surgical History: Reports: None Social & Family History - Family History Family Medical History: Noncontributory - Caffeine Use Caffeine Use: Reports: Coffee ED ROS ALLERGIC REACTION - Review of Systems Review Of Systems: See Below Constitutional: Reports: Fever, Chills, Malaise, Decreased Appetite HEENT: Denies: Ear Pain, Vision Change Respiratory: Reports: Shortness of Breath Cardiovascular: Reports: Chest Pain. Denies: Palpitations GI/Abdominal: Reports: Abdominal Pain, Nausea, Vomiting. Denies: Diarrhea : Reports: Dysuria, Urgency Musculoskeletal: Reports: Muscle Pain (Hurts everywhere) Skin: Reports: No Symptoms Neurological: Reports: Dizziness. Denies: Headache Psychiatric: Reports: Anxiety ED EXAM GENERAL NO PERIP PULSE - Physical Exam Exam: See Below Exam Limited By: No Limitations General Appearance: Alert, Mild Distress (Acutely distressed and uncomfortable female, chilled and feverish complaining of shortness of breath and chest pain, abdominal pain and actively retching) Eye Exam: Bilateral Eye: Normal Inspection Head: Atraumatic Respiratory/Chest: No Respiratory Distress, Lungs Clear Cardiovascular: Regular Rate, Rhythm. No: Tachycardia GI/Abdominal: Tender (Diffusely uncomfortable to palpation but normal bowel sounds and no focal tenderness) Neurological: Alert, Oriented Psychiatric: Anxious Skin Exam: Warm, Dry Course - Vital Signs Last Recorded V/S: Last Vital Signs Temp 98.4 F 03/12/20 16:21 Pulse 116 H 03/12/20 17:54 Resp 26 H 03/12/20 17:54 BP 110/61 03/12/20 17:54 Pulse Ox 96 03/12/20 17:54 - Orders/Labs/Meds Orders: Active Orders 24 hr Category Date Time Status Chest 1V Frontal [CR] Stat Exams 03/12/20 15:41 Taken CULTURE URINE [RM] Stat Lab 03/12/20 17:00 Received Labs: Laboratory Tests 03/12/20 03/12/20 03/12/20 Range/Units 15:24 15:24 16:32 WBC 6.8 (4.5-11.0) K/uL RBC 3.91 (3.30-5.50) M/uL Hgb 11.8 L (12.0-15.0) g/dL Hct 36.1 (36.0-48.0) % MCV 92 (80-98) fL MCH 30 (27-31) pg MCHC 33 (32-36) % Plt Count 251 (150-400) K/uL Neut % (Auto) 86 H (36-66) % Lymph % (Auto) 13 L (24-44) % [place] % (Auto) 1 L (2-6) % Eos % (Auto) 0 L (2-4) % Baso % (Auto) 0 (0-1) % Sodium 140 (140-148) mmol/L Potassium 3.2 L (3.6-5.2) mmol/L Chloride 102 (100-108) mmol/L Carbon Dioxide 25 (21-32) mmol/L Anion Gap 16.2 H (5.0-14.0) mmol/L BUN 17 D (7-18) mg/dL Creatinine 0.8 (0.6-1.0) mg/dL Est Cr Clr Drug Dosing TNP Estimated GFR (MDRD) > 60 (>60) Glucose 135 H (74-106) mg/dL Calcium 9.0 D (8.5-10.1) mg/dL Urine Color Yellow (YELLOW) Urine Appearance Clear (CLEAR) Urine pH 5.5 (5.0-8.0) Ur Specific [place] 1.015 (1.008-1.030) Urine Protein Negative (NEGATIVE) mg/dL Urine Glucose (UA) Normal (NEGATIVE) mg/dL Urine Ketones 15 H (NEGATIVE) mg/dL Urine Occult Blood Trace (NEGATIVE) Urine Nitrite Negative (NEGATIVE) Urine Bilirubin Negative (NEGATIVE) Urine Urobilinogen 0.2 (0.2-1.0) EU/dL Ur Leukocyte Esterase Small (NEGATIVE) Urine RBC 5-10 H (0-5) Urine WBC 10-20 H (0-5) Ur Epithelial Cells Few Amorphous Sediment Not seen Urine Bacteria Few Urine Mucus Not seen Meds: Medications Discontinued Medications Generic Name Dose Route Start Last Admin Trade Name Freq PRN Reason Stop Dose Admin Diphenhydramine HCl 25 mg 03/12/20 15:10 03/12/20 15:23 Benadryl IVPUSH 03/12/20 15:11 25 mg ONETIME ONE Administration Hydromorphone HCl 0.5 mg 03/12/20 15:10 03/12/20 15:23 Dilaudid IVPUSH 03/12/20 15:11 0.5 mg ONETIME ONE Administration Sodium Chloride 1,000 mls @ 1,000 mls/hr 03/12/20 15:15 03/12/20 15:36 Normal Saline IV 1,000 mls/hr ASDIRECTED GERI Administration Lorazepam 1 mg 03/12/20 15:42 03/12/20 16:06 Ativan IVPUSH 03/12/20 15:43 1 mg ONETIME ONE Administration Methylprednisolone Sodium Succinate 125 mg 03/12/20 15:09 03/12/20 15:23 Solu-Medrol IVPUSH 03/12/20 15:10 125 mg ONETIME ONE Administration - Re-Assessments/Exams Free Text/Narrative Re-Assessment/Exam: 03/12/20 16:14 CBC and BMP were obtained, and IV started and the patient was given 1 L normal saline, 125 mg of Solu-Medrol, 25 mg of IV Benadryl and 0.5 mg of IV Dilaudid. After 20 minutes she started improving, and then was given 1 mg of Ativan IV. CBC returned normal, her O2 saturations remain normal and she did not develop any rash or objective signs of allergic reaction. 03/12/20 18:30 Patient slept soundly for over an hour and was nearly asymptomatic when she awoke. She did want to continue on an antibiotic so was given Bactrim DS twice daily for 5 days. UA showed some WBCs and a few bacteria so a culture was initiated, we will be in touch with her with results. Departure - Departure Time of Disposition: 18:41 Disposition: Home, Self-Care 01 Clinical Impression: Medication side effects UTI (urinary tract infection) Qualifiers: Urinary tract infection type: acute cystitis Hematuria presence: without hematuria Qualified Code(s): N30.00 - Acute cystitis without hematuria - Discharge Information Instructions: Urinary Tract Infection, Adult Referrals: PCP,None [Primary Care Provider] - Forms: ED Department Discharge Care Plan Goals: Take antibiotic twice daily for 5 days, stay hydrated and return if worsening despite treatment. Sepsis Event Note - Focused Exam Date Exam was Performed: 03/13/20 Time Exam was Performed: 07:04 - My Orders Last 24 Hours: My Active Orders 03/12/20 15:41 Chest 1V Frontal [CR] Stat 03/12/20 17:00 CULTURE URINE [RM] Stat - Assessment/Plan Last 24 Hours: My Active Orders 03/12/20 15:41 Chest 1V Frontal [CR] Stat 03/12/20 17:00 CULTURE URINE [RM] Stat
[2020-03-12] MEDS: LORazepam 2 MG/ML SDV IVPUSH ONE (16:06)
--- NOTE | 2020-03-13 09:30 | CR ---
CHEST: Portable 03/12/2020 at 4:01 PM CLINICAL HISTORY:Chest pain COMPARISON:2014 FINDINGS: Heart size and pulmonary vascularity are normal. There is mild generalized interstitial prominence and some mild peribronchial cuffing. There are some Yeyo's B lines in the bases. IMPRESSION: Mild generalized interstitial prominence suggests some mild generalized interstitial edema. Etiology is uncertain.
== END 2020-03-12 19:00 | disposition home or self-care (01) ==
LOC: JP.ED 14:59
DX: R11.2 Nausea with vomiting, unspecified (principal); R06.02 Shortness of breath; N30.00 Acute cystitis without hematuria; T37.8X5A Adverse effect of other specified systemic anti-infectives and antiparasitics, initial encounter; Z88.8 Allergy status to other drugs, medicaments and biological substances
CPT/HCPCS: 36415; 71045; 80048; 81001; 85025; 87086; 96361; 96374; 96375; 99285; J1170; J1200; J2060; J2930; J7030

== ENCOUNTER 2021-12-30 03:37 | Emergency (ER) | payer MEDICAID | END 2021-12-30 05:22 | disposition home or self-care (01) | LOC: JP.ED 03:37 | DX: K52.9 Noninfective gastroenteritis and colitis, unspecified (principal); Z88.1 Allergy status to other antibiotic agents; Z79.899 Other long term (current) drug therapy | CPT/HCPCS: 36415; 74176; 80053; 82272; 85025; 86140; 99283; 99285-25 ==

== ENCOUNTER 2021-12-30 08:20 | Emergency (ER) | payer MEDICAID | END 2021-12-30 09:43 | disposition home or self-care (01) | LOC: JP.ED 08:20 | DX: K92.1 Melena (principal); F17.210 Nicotine dependence, cigarettes, uncomplicated; Z88.1 Allergy status to other antibiotic agents; Z79.899 Other long term (current) drug therapy | CPT/HCPCS: 36415; 85018; 99284 ==

== ENCOUNTER 2022-01-06 06:23 | Day surgery (SDC) | payer MEDICAID ==
[2022-01-06] MEDS ORDERED: Lactated Ringers 1,000 ML IV SCH (07:00)
[2022-01-06] MEDS ORDERED: Propofol 200 MG/20 ML SDV ONE ×2 (07:09→07:58)
[2022-01-06] MEDS ORDERED: fentaNYL 100 MCG/2 ML SDV ONE (07:09)
[2022-01-06] MEDS ORDERED: Midazolam 1 MG/ML 2 ML SDV ONE (07:09)
== END 2022-01-06 10:01 | disposition home or self-care (01) ==
LOC: JP.SDS 06:23
PROVIDERS: ATTEND Surgery
DX: K62.5 Hemorrhage of anus and rectum (principal); K64.9 Unspecified hemorrhoids; F17.200 Nicotine dependence, unspecified, uncomplicated; Z88.8 Allergy status to other drugs, medicaments and biological substances
CPT/HCPCS: 87046; 87177; 87209; 87493; 87899; 89055; J2250; J2704; J3010; J7120